=== PATIENT | female | born 2000 | race Two or more races ===

== ENCOUNTER 2020-08-20 16:50 | Emergency (ER) | payer MEDICAID, OTHER ==
[~2020-08-20] VITALS: Ht 170.2 cm; Wt 90.7 kg
[2020-08-20] MEDS ORDERED: fentaNYL CITRATE 100 MCG/2 ML VL IV ONE (20:15)
[2020-08-20] MEDS ORDERED: KETOROLAC TROMETH 30 MG/ML 1ML VIAL IV ONE (20:15)
[2020-08-20 21:23] VITALS: BP 133/72
== END 2020-08-20 22:12 | disposition home or self-care (01) ==
LOC: EDBD 16:50 → ER 16:50
DX: S93.402A Sprain of unspecified ligament of left ankle, initial encounter (principal); T67.5XXA Heat exhaustion, unspecified, initial encounter; R55 Syncope and collapse; J45.909 Unspecified asthma, uncomplicated; W18.39XA Other fall on same level, initial encounter; Y93.89 Activity, other specified; Y92.89 Other specified places as the place of occurrence of the external cause; Y99.8 Other external cause status
CPT/HCPCS: 36415; 70450; 72125; 73610; 84702